=== PATIENT | female | born 2005 | race Caucasian/White ===

== ENCOUNTER 2025-03-09 08:55 | Outpatient (REF) | payer OTHER, SELFPAY ==
--- NOTE | ~2025-03-09 | US_ITS ---
EXAMINATION: US PELVIS CLINICAL INFORMATION: Pelvic pain, right-sided. COMPARISON: None available. TECHNIQUE: Ultrasound of the pelvis is performed using both transabdominal and transvaginal transducers along with Doppler. Transvaginal imaging is performed due to inadequate visualization transabdominally. FINDINGS: Uterus: The uterus is anteversion flexion, and measures 7 x 3 x 5 cm. Volume: 54 cc. The double wall endometrial thickness is 3 mm. No gross masses within the myometrium. No gross uterine fibroid.. The cervix is closed and normal. Adnexa: The ovaries are identified with symmetric flow distribution on color Doppler interrogation.. No free fluid in the cul-de-sac. There is a 3.6 cm heterogeneous septated mixed echotexture isoechoic right ovarian lesion without gross flow on color Doppler interrogation. Right ovary measures 5 x 4 x 4 cm. Volume: 35 cc Left ovary measures 3 x 2 x 1 cm. Volume: 3 cc. No gross solid or cystic lesion. US/US pelvic and transvaginal IMPRESSION: No ovarian torsion. 3.6 cm complex cystic lesion, right ovary. Consider hemorrhagic cyst versus endometrioma among other differential diagnosis. Consider contrast enhanced MRI pelvis. No uterine fibroid. Electronically signed by: Asif Oviedo MD 03/09/2025 09:42 AM EDT
--- OUTSIDE RECORDS SUMMARY | 2025-03-09 09:50 | XMS_ITS | Clinical Summary ---
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
--- OUTSIDE RECORDS SUMMARY | 2025-03-09 09:50 | XMS_ITS | Clinical Summary ---
Author Organization 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 Name Role Phone Rashida Parker MD Primary Care Provider + [phone] Allergies No known active allergies Medications No known medications Social History Tobacco Use Types Packs/Day Years Used Date Smoking Tobacco: Never Smokeless Tobacco: Never Tobacco Cessation:Counseling Given: Not Answered Alcohol Use Standard Drinks/Week Comments Yes 0 (1 standard drink = 0.6 oz pur e alcohol) Comments No Sex and Gender Information Value Date Recorded Sex Assigned at Female 02/23/2024 11:37 PM EDT Legal Sex Female 2:49 AM EDT Gender Identity Female 02/23/2024 11:37 PM EDT Sexual Orientation Straight 02/23/2024 11 :37 PM EDT Last Filed Vital Signs Vital Sign Reading Time Taken Comments Blood Pressure 120/85 02/24/2024 6:09 AM EDT Pulse 64 02/24/2024 6:09 AM EDT Temperature 36.5 C (97.7 F) 02/24/2024 6:09 AM EDT Respiratory Rate 20 02/24/2024 6:09 AM EDT Oxygen Saturation 99% 02/24/2024 6:09 AM EDT Inhaled Oxygen Concentration - - Weight 68.4 kg (150 lb 12.7 oz) 024 11:17 PM EDT Height 165.1 cm (5' 5 ) 09/03/2018 1:04 PM EDT Body Mass Index - - Plan of Treatment Health Maintenance Due Date Last Done Comments HIV Screening 2004 Preventative/Well Visit 01/05/2006 [facility] ANNUAL DEPRESSION SCREENING 2016 [facility] BLOOD PRESSURE 140/90 OR UNDER 01/05/2022 [facility] BMI DOCUMENTED 01/05/2022 [facility] TOBACCO CESSATION COUNSELING 01/05/2022 HEPATITIS C SCREENING 01/05/2022 Hepatitis B Infection Screening 01/05/2022 Hepatitis B Vaccines (1 of 3 - 19+ 3-dose series) 01/05/2023 [facility] ACCESS TO PREVENTIVE/AMBULATORY VISIT 2024 INFLUENZA VACCINE 12/11/2024 03/27/2018, , 03/26/2017, Additional history exists Cervical Cancer 01/05/2025 COVID VACCINE ( season) 2025 Pneumococcal Vaccine: Ped & Adult <50 Aged Out No longer eligible based on patient's age to complete this topic Insurance [email or web address] Care Teams Electronic Publications Specialist Relationship Specialty Start Date End Date Rashida Parker MD [address] [place] [address] PCP - General Pediatrics 09/03/18
--- OUTSIDE RECORDS SUMMARY | 2025-03-09 09:50 | XMS_ITS | Clinical Summary ---
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 Not on vania e 09/04/2024 Are you concerned about learning? Not on file 09/04/2024 No 09/04/2024 No 09/04/2024 Food Answer Date Recorded Within the past 6 months we worried whether our food would run out before we got money to buy more. Never True 09/04/2024 Within the past 6 months the food we bought just didn't last and we didn't have enough money to get more. Never True Residential Stability Answer Date Recor ded What is your housing situation today? I have marcellus sing 09/04/2024 How many times have you move d in the past 12 months? Zero (I did not move) 09/04/2024 Paying for Meds Answer Date Recorded Do you have trouble paying for medicines? No 09/04/2024 Paying Utility Bills Answer Date Record ed Do you have trouble paying your heating or elect ricity bill? No 09/04/2024 Transportation Answer Date Recorded Has the lack of transportati on kept you from medical appointments or from getting medications? No 09/04/2024 Digital Access Answer Date Recorded No 09/04/2024 Yes 09/04/2024 Do you have reliable internet access at home? Ye s 09/04/2024 Do you have a device (e.g., phone, tablet, computer) with a working camera? Yes 09/04/2024 Intimate Partner Violence Answer Date R ecorded Are you denied basic needs s uch as food, clothing, or medical care? No 09/04/2024 In the past 12 months have y ou been in a relationship with a person who hurts, threatens, or tries to control you? No 09/04/2024 Are you denied basic needs s uch as food, clothing, or medical care? No 09/04/2024 In the past 12 months have y ou been in a relationship with a person who hurts, threatens, or tries to control you? No 09/04/2024 Comments Unknown Sex and Gender Information Value Date Recorded Sex Assigned at Not on file Legal Sex Female 12:12 AM EDT Gender Identity Not on file Sexual Orientation Not on file Last Filed Vital Signs Vital Sign Reading Time Taken Comments Blood Pressure 122/64 09/04/2024 3:27 AM EDT Pulse 68 09/04/2024 3:27 AM EDT Temperature 36.2 C (97.2 F) 09/04/2024 3:27 AM EDT Respiratory Rate 16 09/04/2024 3:27 AM EDT Oxygen Saturation 100% 09/04/2024 3:27 AM EDT Inhaled Oxygen Concentration - - Weight - - Height - - Body Mass Index - - Plan of Treatment Health Maintenance Due Date Last Done Comments Adult Td,Tdap Booster 2004 MMR VACCINES (1 of 1 - Stand martha series) 01/05/2005 COMBINED DTaP,Tdap,Td (1 - Tdap) 01/05/2011 DEPRESSION SCREENING 2016 SMOKING Hx and SMOKELESS TOB ACCO SCREENING 01/05/2017 HPV VACCINES (1 - 3-dose series) 01/05/2019 CHLAMYDIA SCREENING 2020 MENINGOCOCCAL VACCINES (B) ( 1 of 2 - Standard) 2020 ADOLESCENT UNIVERSAL LIPID SCREENING 01/05/2021 HEPATITIS C SCREENING 01/05/2022 HIV ONE-TIME SCREENING (18-6 5 YEARS) 01/05/2022 INFLUENZA VACCINE (#1) 2024 PAP SMEAR 01/05/2025 COVID-19 VACCINE ( - 2024-2 6 season) 2025 HEPATITIS A VACCINES Aged Out No long er eligible based on patient's age to complete this topic HIB VACCINES Aged Out No longer eligi ble based on patient's age to complete this topic MENINGOCOCCAL VACCINES (ACWY) Aged Out No longer eligible based on patient's age to complete this topic PNEUMOCOCCAL VACCINES (0-49 years) Aged Out No longer eligible based on patient's age to complete this topic Medical Devices Not on file Insurance [employer] CLAUDIA DREW Care Teams 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 It is not the complete legal health record.[facility]
== END 2025-03-09 08:56 | disposition home or self-care (01) ==
LOC: HO.UMASIMG 08:55
PROVIDERS: Visit Provider Family Medicine
DX: R10.21 Pelvic and perineal pain right side (principal)
CPT/HCPCS: 76830; 76856

== ENCOUNTER → 2025-03-09 09:10 | Outpatient (BNV) | payer OTHER, SELFPAY | PROVIDERS: Visit Provider Radiology Diagnostic Radiology | DX: N83.201 Unspecified ovarian cyst, right side (principal); R10.21 Pelvic and perineal pain right side | CPT/HCPCS: 76830; 76856 ==